=== PATIENT | male | born 1960 | race Two or more races ===

== ENCOUNTER 2019-03-28 23:41 | Emergency (ER) | payer OTHER ==
[~2019-03-28] VITALS: Ht 152.4 cm; Wt 68.9 kg
[~2019-03-28 23:41] MED LIST: NEXIUM40 M1 PO
[2019-03-28] MEDS ORDERED: METOPROLOL SUCC50 MG PO (23:59)
[2019-03-29] MEDS ORDERED: PREDNISONE20 MG PO (02:41)
[2019-03-29] MEDS ORDERED: COLCRYS0.6 MG PO (02:41)
== END 2019-03-29 01:21 | disposition home or self-care (01) ==
LOC: ER 23:41
DX: M10.072 Idiopathic gout, left ankle and foot (principal)